=== PATIENT | female | born 1960 ===

== ENCOUNTER 2022-07-16 12:29 | Emergency (ER) | payer OTHER | END 2022-07-16 14:29 | disposition home or self-care (01) | LOC: DL.ED 12:29 | DX: S86.912A Strain of unspecified muscle(s) and tendon(s) at lower leg level, left leg, initial encounter (principal); I10 Essential (primary) hypertension; D64.9 Anemia, unspecified; E66.9 Obesity, unspecified; Z68.41 Body mass index [BMI] 40.0-44.9, adult; Z79.899 Other long term (current) drug therapy | CPT/HCPCS: 93971; 99283 ==